=== PATIENT | male | born 1975 | race Caucasian/White ===

== ENCOUNTER → 2016-09-18 | Outpatient (REF) | payer BC | LOC: M LAB REF 13:16 | PROVIDERS: ATTEND Nurse Practitioner Family | DX: N52.9 Male erectile dysfunction, unspecified (principal) ==

== ENCOUNTER → 2021-03-24 | Outpatient (CLI) | payer BC | LOC: M WUC 12:14 | PROVIDERS: ATTEND Internal Medicine | DX: R06.02 Shortness of breath (principal) ==

== ENCOUNTER → 2022-02-17 | Outpatient (REF) | payer BC ==
[2022-02-17 13:34] LABS: RBC, URINE 0-1 /hpf (0-3); SQUAMOUS EPITHELIAL CELL URINE SMALL AMOUNT /hpf (SMALL AMT); WBC, URINE 0-1 /hpf (0-3)
[2022-02-17 13:35] LABS: AMORPHOUS SEDIMENT, URINE LARGE AMOUNT (NEGATIVE); BACTERIA, URINE SMALL AMOUNT; HYALINE CAST, URINE NONE SEEN /lpf (0-1)
[2022-02-17 13:36] LABS: CALCIUM OXALATE CRYSTALS,URINE SMALL AMOUNT /hpf; MUCUS, URINE SMALL AMOUNT (NEGATIVE)
== END ==
LOC: M LAB REF 12:18
PROVIDERS: ATTEND Internal Medicine
DX: R31.9 Hematuria, unspecified (principal)

== ENCOUNTER → 2023-06-08 | Outpatient (CLI) | payer BC | LOC: M SLEEP HO 10:55 | PROVIDERS: ATTEND Nurse Practitioner Adult Health | DX: G47.30 Sleep apnea, unspecified (principal) ==

== ENCOUNTER → 2023-07-08 | Outpatient (CLI) | payer BC | LOC: M SLEEP 20:00 | PROVIDERS: ATTEND Nurse Practitioner Adult Health | DX: G47.33 Obstructive sleep apnea (adult) (pediatric) (principal) ==

== ENCOUNTER → 2024-03-22 | Outpatient (REF) | payer BC ==
[2024-03-22 13:48] LABS: HEPATITIS B SURFACE ANTIGEN NEGATIVE (NEGATIVE)
[2024-03-22 14:07] LABS: HEPATITIS C VIRUS ABY INDEX < 0.02 INDEX (<0.8)
[2024-03-22 14:08] LABS: HEPATITIS B CORE ANTIBODY IGM NEGATIVE (NEGATIVE)
== END ==
LOC: M LAB REF 12:23
PROVIDERS: ATTEND Internal Medicine
DX: R74.01 Elevation of levels of liver transaminase levels (principal)

== ENCOUNTER 2024-10-06 14:47 | Emergency (ER) | payer BC ==
[~2024-10-06] VITALS: Ht 172.7 cm; Wt 104.8 kg
[2024-10-06] MEDS ORDERED: VENL150C43 PO (14:59)
[2024-10-06] MEDS ORDERED: ATOR1TAB19 PO (14:59)
[2024-10-06] MEDS ORDERED: ALBU8.5H PO (14:59)
[2024-10-06] MEDS ORDERED: BUPR-766 PO (14:59)
[2024-10-06] MEDS ORDERED: VENL75CA47 PO (14:59)
[2024-10-06] MEDS ORDERED: LISI20TA33 PO (14:59)
[2024-10-06] MEDS ORDERED: HOME MED LIST COMPLETE! XX SCH (15:50)
[2024-10-06] MEDS: LIDOCAINE 1% MDV 20 ML VIAL SC ONE (17:15)
[2024-10-06 18:40] VITALS: BP 133/80; TEMP 98.1; O2SAT 98
== END 2024-10-06 18:51 | disposition home or self-care (01) ==
LOC: M ED 14:47
DX: S61.216A Laceration without foreign body of right little finger without damage to nail, initial encounter (principal); W26.8XXA Contact with other sharp object(s), not elsewhere classified, initial encounter; I10 Essential (primary) hypertension; Y92.009 Unspecified place in unspecified non-institutional (private) residence as the place of occurrence of the external cause; Y93.89 Activity, other specified; Y99.9 Unspecified external cause status; Z88.0 Allergy status to penicillin; Z88.2 Allergy status to sulfonamides; Z91.041 Radiographic dye allergy status; Z79.52 Long term (current) use of systemic steroids; Z79.02 Long term (current) use of antithrombotics/antiplatelets; Z79.899 Other long term (current) drug therapy